=== PATIENT | male | born 1960 | race Caucasian/White ===

== ENCOUNTER 2017-06-18 22:48 | Emergency (ER) | payer OTHER ==
[~2017-06-18] VITALS: Ht 172.7 cm; Wt 70.8 kg
[~2017-06-18 22:48] MED LIST: AMLODIPINE BESYL5 MG PO; B-COMPLEX-VITA1 EACH PO; CYANOCOBALAM1000 MCG PO; KEPPRA500 MG PO; LEVETIRACETAM500 MG PO; POTASSIUM CHLO20 ME1 PO
[2017-06-19 01:27] VITALS: BP 129/93
== END 2017-06-19 01:28 | disposition home or self-care (01) ==
LOC: EME 22:48
DX: Z77.098 Contact with and (suspected) exposure to other hazardous, chiefly nonmedicinal, chemicals (principal); R42 Dizziness and giddiness; R11.0 Nausea; G40.909 Epilepsy, unspecified, not intractable, without status epilepticus
CPT/HCPCS: 99281; 99283

== ENCOUNTER 2017-06-30 10:43 | Day surgery (SDC) | payer OTHER ==
[~2017-06-30] VITALS: Ht 172.7 cm; Wt 71.0 kg
[~2017-06-30 10:43] MED LIST changes: +CETAPHIL MOISTU90 GM TP; +WELLBUTRIN SR150 MG PO
[2017-06-30 11:19] VITALS: BP 126/92
[2017-06-30] MEDS ORDERED: PERCOCET 5/31 TABLET PO (13:48)
[2017-06-30 14:50] VITALS: BP 131/89
[2017-06-30 15:19] VITALS: BP 131/89
== END 2017-06-30 15:28 | disposition home or self-care (01) ==
LOC: SDC
PROC: 0YU60JZ Supplement Left Inguinal Region with Synthetic Substitute, Open Approach (ICD-10-PCS; principal; 2017-06-30)
DX: K40.90 Unilateral inguinal hernia, without obstruction or gangrene, not specified as recurrent (principal); D17.6 Benign lipomatous neoplasm of spermatic cord; I10 Essential (primary) hypertension; R79.89 Other specified abnormal findings of blood chemistry; E87.6 Hypokalemia; F10.10 Alcohol abuse, uncomplicated; K70.10 Alcoholic hepatitis without ascites; F31.9 Bipolar disorder, unspecified; K21.9 Gastro-esophageal reflux disease without esophagitis; F17.200 Nicotine dependence, unspecified, uncomplicated
CPT/HCPCS: C1781; J0131; J0330; J0690; J1885; J2250; J2405; J3010